=== PATIENT | female | born 1985 ===

== ENCOUNTER 2024-02-12 10:39 | Emergency (ER) | payer MEDICAID, SELFPAY ==
[2024-02-12 11:10] VITALS: BP 118/87; PULSE 83; RESP 16; TEMP 36.8; O2SAT 100; BMI 25.2
--- NOTE | 2024-02-12 11:12 | ED_ITS ---
HPI - Neck Pain/Injury General Chief Complaint: Upper Respiratory Symptoms Stated Complaint: Neck pain Related Data Allergies Allergy/AdvReac Type Severity Reaction Status Date / Time No Known Allergies Allergy Verified 02/12/24 11:17 [facility] Social History Social History Advance Directives: No Physical Exam Vital Signs: Vital Signs: Last Vital Signs Temp 98.2 F 02/12/24 11:10 Pulse 83 02/12/24 11:10 Resp 16 02/12/24 11:10 BP 118/87 02/12/24 11:10 Pulse Ox 100 02/12/24 11:10 O2 Del Method Room Air 02/12/24 11:10 BMI result Body Mass Index 25.2 Course Course Course Narrative: This is a Rapid Medical Examination (RME) performed by Rachel Carver PA-C in triage. Full HPI, ROS, assessment and treatment plan per primary provider in the Main ED. 38 y/o [place] Creole speaking female presenting with 1 week of cough, subjective fevers, bilateral neck pain L>R. is sick with similar symptoms. No confusion or headache. VSS in triage. Appears uncomfortable in triage. Soft tissue tenderness and palpable spasm of upper trapezius. CV w/ RRR and lungs CTAB. No peripheral edema. Most likely muscular in etiology. Low clinical suspicion for meningitis Plan: viral swabs, strep swab Reevaluation(s) Reevaluation #1: Patient eloped from the emergency department waiting room prior to completing full assessment and treatment. Medical Decision Making Lab Data Labs: Lab Results 02/12/24 Range/Units 11:39 Influenza Type A (PCR) NEGATIVE (Negative) Influenza Type B (PCR) NEGATIVE (Negative) RSV RNA Qual (PCR) NEGATIVE (Negative) SARS-CoV-2 RNA (RT-PCR) NEGATIVE (Negative) S. pyogenes GrpA KAYLEN Negative (Negative) Discharge Plan Discharge Clinical Impression: Upper respiratory infection Patient Disposition: Left W/O Completing Treatment Interventions: LWBS Worksheet Last Done: 02/12/24 14:59 Discharge Date/Time: 02/12/24 14:59
--- NOTE | 2024-02-12 11:18 | PC.NURSE ---
[id number] Shine Barnett staff interpreter not informing RN what the pt is saying
[2024-02-12 11:54] LABS: IDNOW Serial# 08D9AD1C; Strep A Nucleic Acid Negative (Negative)
[2024-02-12 12:23] LABS: Influenza A PCR NEGATIVE (Negative); Influenza B PCR NEGATIVE (Negative); Resp Syncy Virus RNA Qual PCR NEGATIVE (Negative); SARS COV2 PCR INHOUSE NEGATIVE (Negative)
== END 2024-02-12 14:59 | disposition left against medical advice (07) ==
PROVIDERS: Physician Assistant; Emergency Provider Emergency Medicine
DX: J06.9 Acute upper respiratory infection, unspecified (principal)
CPT/HCPCS: 0241U; 87651; 99281; 99283